=== PATIENT | female | born 1980 | race Caucasian/White ===

== ENCOUNTER 2017-06-11 05:55 | Emergency (ER) | payer OTHER ==
[~2017-06-11] VITALS: Ht 165.1 cm; Wt 63.0 kg
[~2017-06-11 05:55] MED LIST: CLIN150 PO; IBUP800T23 PO
[2017-06-11 05:58] VITALS: BP 175/107; PULSE 131; RESP 22; TEMP 98.6; O2SAT 100
[2017-06-11] MEDS ORDERED: SODIUM CHLOR 0.9% 1000 ML INJ 1,000 ML IV ONE (06:15)
[2017-06-11] MEDS ORDERED: SODIUM CHLORIDE 0.9% FLUSH 10 ML FLUSH IVF PRN (06:15)
--- NOTE | 2017-06-11 06:26 | PD ---
HPI Chief Complaint: Psychiatric Symptoms Time Seen by Provider: 06:08 Travel History International Travel<30 days: No Contact w/Intl Traveler<30days: No Traveled to known affect area: No History of Present Illness HPI The patient is a 37-year-old female who presents to the emergency department via private vehicle for anxiety. The patient states over the last 3 days she's had increasing anxiety, decreased ability to sleep, and a breakout of acne over the facial area. The patient states her symptoms started with a breaking out of acne on the facial area, she went to work, however, was embarrassed and asked to go home. The patient also states she's had decreasing ability to sleep over the last 3 days, is only averaging 2 hours of sleep per day and is having increasing tremors and anxiety. The patient denies any previous history of anxiety and has never been evaluated by a psychiatrist for anxiety. She denies any history of thyroid disorders, illicit drug use, excessive caffeine use, or previous pulmonary embolism/DVT. She denies any recent hospitalizations, surgeries, or travels. The patient's last menstrual cycle was 3-4 weeks ago, she denies . She denies taking any medications on a daily basis. Symptoms are moderate, there are no current alleviating or exacerbating factors. PFSH Past Medical History Medical History: Denies Significant Hx Depression: Yes Diminished Hearing: No Headaches: Yes Migraines: Yes Tetanus Vaccination: Unknown ?: Not Past Surgical History Surgical History: No Previous Surgery Social History Alcohol Use: Yes (WEEKLY) Tobacco Use: No Substance Use: No Allergies-Medications (Allergen,Severity, Reaction): Coded Allergies: penicillin G (Unverified Allergy, Severe, Rash, 06/11/17) Reported Meds & Prescriptions Reported Meds & Active Scripts Active Hydroxyzine HCl 25 Mg Tab 25 Mg PO Q6HR Review of Systems Except as stated in HPI: all other systems reviewed are Neg General / Constitutional: No: Fever HENT: No: Lightheadedness Cardiovascular: Positive: Chest Pain or Discomfort (occasional chest discomfort ) Respiratory: Positive: Shortness of Breath (occasional shortness of breath with her anxiety) Gastrointestinal: No: Nausea Musculoskeletal: No: Weakness Skin: Positive Other (increasing acne over the facial area) Neurologic: Positive: Other (tremulous over the last 3 days) Psychiatric: Positive: Anxiety Endocrine: No: Heat Intolerance, Cold Intolerance Physical Exam Narrative GENERAL: Awake, alert, slightly anxious and tremulous 37-year-old female. SKIN: Focused skin assessment warm/dry. Mild erythema noted over the nasal bridge bilaterally. HEAD: Atraumatic. Normocephalic. EYES: Pupils equal and round. No scleral icterus. No injection or drainage. ENT: No nasal bleeding or discharge. Dried and slightly chapped skin over the lips. NECK: Trachea midline. No JVD. CARDIOVASCULAR: Regular, tachycardic with a heart rate of 120. RESPIRATORY: No accessory muscle use. Clear to auscultation. Breath sounds equal bilaterally. GASTROINTESTINAL: Abdomen soft, non-tender, nondistended. No rebound tenderness. MUSCULOSKELETAL: No obvious deformities. No clubbing. No cyanosis. No edema. Slightly tremulous on the hands. NEUROLOGICAL: Awake and alert. No obvious cranial nerve deficits. Motor grossly within normal limits. Normal speech. Knee DTRs are 2+ and symmetric. PSYCHIATRIC: Slightly anxious, insight and judgment appear normal. Data Data Last Documented VS Vital Signs Date Time Temp Pulse Resp B/P (MAP) Pulse Ox O2 Delivery O2 Flow Rate FiO2 06/11/17 09:38 06/11/17 08:00 97 16 100 Room Air 06/11/17 05:58 98.6 Orders Orders Electrocardiogram (06/11/17 06:15) Ed Urine Pregnancytest Poc (06/11/17 06:15) Complete Blood Count With Diff (06/11/17 06:15) Comprehensive Metabolic Panel (06/11/17 06:15) Magnesium (Mg) (06/11/17 06:15) Ecg Monitoring (06/11/17 06:15) Iv Access Insert/Monitor (06/11/17 06:15) Oximetry (06/11/17 06:15) Sodium Chloride 0.9% Flush (Ns Flush) (06/11/17 06:15) Sodium Chlor 0.9% 1000 Ml Inj (Ns 1000 M (06/11/17 06:15) D-Dimer (06/11/17 06:15) Thyroid Stimulating Hormone (06/11/17 06:15) Free T3 (06/11/17 06:15) Free Thyroxine (T4) (06/11/17 06:15) Drug Screen, Random Urine (06/11/17 06:15) Lorazepam Inj (Ativan Inj) (06/11/17 06:30) Ct Pulmonary Angiogram (06/11/17 ) Iohexol 350 Inj (Omnipaque 350 Inj) (06/11/17 08:07) Labs Laboratory Tests Test 06/11/17 06:25 06/11/17 06:35 Urine Opiates Screen NEG Urine Barbiturates Screen NEG Urine Amphetamines Screen NEG Urine Benzodiazepines Screen NEG Urine Cocaine Screen NEG Urine Cannabinoids Screen POS White Blood Count 9.0 TH/MM3 Red Blood Count 4.69 MIL/MM3 Hemoglobin 15.0 GM/DL Hematocrit 43.8 % Mean Corpuscular Volume 93.4 FL Mean Corpuscular Hemoglobin 32.1 PG Mean Corpuscular Hemoglobin Concent 34.4 % Red Cell Distribution Width 12.6 % Platelet Count 235 TH/MM3 Mean Platelet Volume 7.8 FL Neutrophils (%) (Auto) 65.3 % Lymphocytes (%) (Auto) 22.5 % Monocytes (%) (Auto) 9.8 % Eosinophils (%) (Auto) 1.9 % Basophils (%) (Auto) 0.5 % Neutrophils # (Auto) 5.9 TH/MM3 Lymphocytes # (Auto) 2.0 TH/MM3 Monocytes # (Auto) 0.9 TH/MM3 Eosinophils # (Auto) 0.2 TH/MM3 Basophils # (Auto) 0.0 TH/MM3 CBC Comment DIFF FINAL Differential Comment D-Dimer Quantitative (PE/DVT) 0.52 MG/L FEU Blood Urea Nitrogen 8 MG/DL Creatinine 0.81 MG/DL Random Glucose 83 MG/DL Total Protein 8.6 GM/DL Albumin 3.9 GM/DL Calcium Level 9.0 MG/DL Magnesium Level 1.7 MG/DL Alkaline Phosphatase 73 U/L Aspartate Amino Transf (AST/SGOT) 86 U/L Alanine Aminotransferase (ALT/SGPT) 78 U/L Total Bilirubin 1.0 MG/DL Sodium Level 136 MEQ/L Potassium Level 3.4 MEQ/L Chloride Level 102 MEQ/L Carbon Dioxide Level 19.9 MEQ/L Anion Gap 14 MEQ/L Estimat Glomerular Filtration Rate 80 ML/MIN Free Thyroxine 1.09 NG/DL Free Triiodothyronine (T3) pg/dL 3.53 PG/ML Thyroid Stimulating Hormone 3rd Gen 2.090 uIU/ML MDM Medical Decision Making Medical Screen Exam Complete: Yes Emergency Medical Condition: Yes Medical Record Reviewed: Yes Interpretation(s) EKG reveals sinus tachycardia with a heart rate of 114. No ischemic changes noted. Differential Diagnosis Differential diagnosis includes thyroid storm, hyperthyroidism, pulmonary embolism, dehydration, electrolyte abnormality, anxiety, panic attack. Narrative Course IV was established, labs were drawn and sent, and the patient was placed on cardiac telemetry monitoring and continuous pulse oximetry monitoring. EKG was ordered and interpreted. The patient was administered 1 L of IV fluids and Ativan 1 mg intravenously. TSH, free T4, and free T3 were sent to lab. The patient was signed out to the oncoming physician at 7 AM with laboratory evaluation pending. Scripts Hydroxyzine HCl (Hydroxyzine HCl) 25 Mg Tab 25 MG PO Q6HR for Anxiety, #10 TAB 0 Refills Prov: Jyoti Pappsa MD 06/11/17 Condition: Stable Chavo Ngo MD Jun 11, 2017 06:26
[2017-06-11] MEDS ORDERED: LORazepam 2 MG/ML VIAL IV PUSH ONE (06:30)
[2017-06-11 06:34] VITALS: BP 161/101; O2SAT 100
[2017-06-11 06:58] LABS: AUTOMATED NEUTROPHIL # 5.9 TH/MM3 (1.8-7.7); BASOPHIL % 0.5 % (0.0-2.0); EOSINOPHIL # 0.2 TH/MM3 (0-0.4); EOSINOPHIL % 1.9 % (0.0-4.0); HEMATOCRIT 43.8 % (35.0-46.0); HEMO FLAGS DIFF FINAL; LYMPH % 22.5 % (9.0-44.0); MEAN CELL VOLUME 93.4 FL (80.0-100.0); MEAN CORPUSCULAR HEMOGLOBIN 32.1 PG (27.0-34.0); MEAN CORPUSCULAR HGB CONC 34.4 % (32.0-36.0); MONO % 9.8 % (0.0-8.0); NEUT % 65.3 % (16.0-70.0); PLATELET COUNT 235 TH/MM3 (150-450); RED BLOOD COUNT 4.69 MIL/MM3 (4.00-5.30); RED CELL DISTRIBUTION WIDTH 12.6 % (11.6-17.2)
[2017-06-11 07:14] LABS: ALT (GPT) 78 U/L (10-53); ANION GAP 14 MEQ/L (5-15); AST (GOT) 86 U/L (15-37); BICARBONATE 19.9 MEQ/L (21.0-32.0); BLOOD UREA NITROGEN 8 MG/DL (7-18); CHLORIDE 102 MEQ/L (98-107); GLOMERULAR FILTRATION RATE 80 ML/MIN (>89); MAGNESIUM 1.7 MG/DL (1.5-2.5); POTASSIUM 3.4 MEQ/L (3.5-5.1); SODIUM (NA) 136 MEQ/L (136-145)
[2017-06-11 07:23] LABS: ALKALINE PHOSPHATASE 73 U/L (45-117); FREE T3 3.53 PG/ML (2.18-3.98); FREE T4 1.09 NG/DL (0.76-1.46)
[2017-06-11 08:00] VITALS: BP 127/83; PULSE 97; RESP 16; O2SAT 100
[2017-06-11] MEDS ORDERED: IOHEXOL 350 MG/ML 10 ML VIAL (for RAD DIAG) IVCONTRAST ONE (08:07)
--- NOTE | 2017-06-11 09:06 | RADRPT ---
EXAM DATE/TIME: 06/11/2017 07:59 [facility] COMPARISON: No previous studies available for comparison. INDICATIONS : Chest discomfort and anxiety IV CONTRAST: 74 cc Omnipaque 350 (iohexol) IV RADIATION DOSE: 6.95 CTDIvol (mGy) MEDICAL HISTORY : None SURGICAL HISTORY : None. ENCOUNTER: Initial ACUITY: 1 day PAIN SCALE: 2/10 LOCATION: chest TECHNIQUE: Volumetric scanning of the chest was performed using a pulmonary embolism protocol MIP images were re constructed. Using automated exposure control and adjustment of the mA and/or kV according to patien t size, radiation dose was kept as low as reasonably achievable to obtain optimal diagnostic quality images. DICOM format image data is available electronically for review and comparison. Follow-up recommendations for detected pulmonary nodules are based at a minimum on nodule size and pa tient risk factors according to Fleischner Society Guidelines. FINDINGS: PULMONARY ARTERIES: No filling defects are seen in the pulmonary arteries through the segmental level. LUNGS: There is no consolidation or pneumothorax . No concerning pulmonary nodule is visualized. PLEURAE: There is no pleural thickening or pleural effusion. MEDIASTINUM: There is good visualization of the great vessels of the middle mediastinum. No evidence of mediastin al or hilar adenopathy/mass. MUSCULOSKELETAL: Within normal limits for patient age. MISCELLANEOUS: The visualized upper abdominal organs demonstrate no acute abnormality. CONCLUSION: Normal examination. Camilo Mcwilliams MD on June 11, 2017 at 9:03 Board Certified Radiologist. This report was verified electronically.
[2017-06-11] MEDS ORDERED: HYDR-3133 PO (09:17)
--- NOTE | 2017-06-11 09:17 | PD ---
Physical Exam Narrative General: No apparent distress, well appearing ENT: mmm Neck: trachea is midline Cardiovascular: Regular rate and rhythm Lungs: No increased respiratory effort noted Extremities: No edema Neuro: Awake, motor and sensation grossly intact, normal speech Data Data Last Documented VS Vital Signs Date Time Temp Pulse Resp B/P (MAP) Pulse Ox O2 Delivery O2 Flow Rate FiO2 06/11/17 08:00 97 16 127/83 (98) 100 Room Air 06/11/17 05:58 98.6 Orders Orders Electrocardiogram (06/11/17 06:15) Ed Urine Pregnancytest Poc (06/11/17 06:15) Complete Blood Count With Diff (06/11/17 06:15) Comprehensive Metabolic Panel (06/11/17 06:15) Magnesium (Mg) (06/11/17 06:15) Ecg Monitoring (06/11/17 06:15) Iv Access Insert/Monitor (06/11/17 06:15) Oximetry (06/11/17 06:15) Sodium Chloride 0.9% Flush (Ns Flush) (06/11/17 06:15) Sodium Chlor 0.9% 1000 Ml Inj (Ns 1000 M (06/11/17 06:15) D-Dimer (06/11/17 06:15) Thyroid Stimulating Hormone (06/11/17 06:15) Free T3 (06/11/17 06:15) Free Thyroxine (T4) (06/11/17 06:15) Drug Screen, Random Urine (06/11/17 06:15) Lorazepam Inj (Ativan Inj) (06/11/17 06:30) Ct Pulmonary Angiogram (06/11/17 ) Iohexol 350 Inj (Omnipaque 350 Inj) (06/11/17 08:07) Labs Laboratory Tests Test 06/11/17 06:25 06/11/17 06:35 Urine Opiates Screen NEG Urine Barbiturates Screen NEG Urine Amphetamines Screen NEG Urine Benzodiazepines Screen NEG Urine Cocaine Screen NEG Urine Cannabinoids Screen POS White Blood Count 9.0 TH/MM3 Red Blood Count 4.69 MIL/MM3 Hemoglobin 15.0 GM/DL Hematocrit 43.8 % Mean Corpuscular Volume 93.4 FL Mean Corpuscular Hemoglobin 32.1 PG Mean Corpuscular Hemoglobin Concent 34.4 % Red Cell Distribution Width 12.6 % Platelet Count 235 TH/MM3 Mean Platelet Volume 7.8 FL Neutrophils (%) (Auto) 65.3 % Lymphocytes (%) (Auto) 22.5 % Monocytes (%) (Auto) 9.8 % Eosinophils (%) (Auto) 1.9 % Basophils (%) (Auto) 0.5 % Neutrophils # (Auto) 5.9 TH/MM3 Lymphocytes # (Auto) 2.0 TH/MM3 Monocytes # (Auto) 0.9 TH/MM3 Eosinophils # (Auto) 0.2 TH/MM3 Basophils # (Auto) 0.0 TH/MM3 CBC Comment DIFF FINAL Differential Comment D-Dimer Quantitative (PE/DVT) 0.52 MG/L FEU Blood Urea Nitrogen 8 MG/DL Creatinine 0.81 MG/DL Random Glucose 83 MG/DL Total Protein 8.6 GM/DL Albumin 3.9 GM/DL Calcium Level 9.0 MG/DL Magnesium Level 1.7 MG/DL Alkaline Phosphatase 73 U/L Aspartate Amino Transf (AST/SGOT) 86 U/L Alanine Aminotransferase (ALT/SGPT) 78 U/L Total Bilirubin 1.0 MG/DL Sodium Level 136 MEQ/L Potassium Level 3.4 MEQ/L Chloride Level 102 MEQ/L Carbon Dioxide Level 19.9 MEQ/L Anion Gap 14 MEQ/L Estimat Glomerular Filtration Rate 80 ML/MIN Free Thyroxine 1.09 NG/DL Free Triiodothyronine (T3) pg/dL 3.53 PG/ML Thyroid Stimulating Hormone 3rd Gen 2.090 uIU/ML MDM Supervised Visit with VIN[facility]: No Interpretation(s) CBC & BMP Diagram 06/11/17 06:35 Total Protein 8.6 H, Albumin 3.9, Calcium Level 9.0, Magnesium Level 1.7, Alkaline Phosphatase 73, Aspartate Amino Transf (AST/SGOT) 86 H, Alanine Aminotransferase (ALT/SGPT) 78 H, Total Bilirubin 1.0 ct chest no pe Narrative Course Signed over to me to follow lab work and reevaluate. D-dimer was mildly elevated so proceed with CT chest which was negative. On discussion with patient she denies suicidal and homicidal ideation to me. Offered voluntary psychiatry screening but she declined and states she feels comfortable setting up outpatient follow-up for further testing. I will provide her with Vistaril to use the interim. Given return instructions and happy with plan, heart rate 104 while I was in room at or, bp improved after Ativan Diagnosis Primary Impression: Shortness of breath Patient Instructions: General Instructions Additional Instruction: Return as needed, set up primary care physician for close follow-up Med/Other Pt SpecificInfo: Prescription(s) given Scripts Hydroxyzine HCl (Hydroxyzine HCl) 25 Mg Tab 25 MG PO Q6HR for Anxiety, #10 TAB 0 Refills Prov: Jyoti Pappas MD 06/11/17 Disposition: 01 DISCHARGE HOME Condition: Stable Jyoti Pappas MD Jun 11, 2017 09:17
--- NOTE | 2017-06-11 19:34 | EKG ---
Date Performed: 06/11/2017 Time Performed: 06:18:23 PTAGE: 37 years EKG: SINUS TACHYCARDIA ABNORMAL RHYTHM ECG NO PREVIOUS TRACING DOCTOR: Yash Taylor Interpretating Date/Time 06/11/2017 19:32:35
== END 2017-06-11 09:44 | disposition home or self-care (01) ==
LOC: NEPE 05:55
DX: R06.02 Shortness of breath (principal); R07.89 Other chest pain; R00.0 Tachycardia, unspecified; F41.9 Anxiety disorder, unspecified; F32.9 Major depressive disorder, single episode, unspecified; Z79.899 Other long term (current) drug therapy
CPT/HCPCS: 71275; 80053; 80307; 83735; 84439; 84443; 84481; 84703; 85025; 85379; 93005; 96361; 96374; 99285; J2060; J7030; Q9967

== ENCOUNTER 2018-03-16 08:50 | Emergency (ER) | payer MEDICAID, OTHER ==
[~2018-03-16] VITALS: Ht 165.1 cm; Wt 60.0 kg
[~2018-03-16 08:50] MED LIST changes: -CLIN150 PO; +HYDR-3133 PO; -IBUP800T23 PO
[2018-03-16 08:55] VITALS: BP 163/93; PULSE 99; RESP 20; TEMP 97.6; O2SAT 99
[2018-03-16] MEDS ORDERED: SODIUM CHLOR 0.9% 1000 ML INJ 1,000 ML IV SCH (10:09)
[2018-03-16] MEDS ORDERED: SODIUM CHLORIDE 0.9% FLUSH 10 ML FLUSH IV FLUSH PRN (10:15)
[2018-03-16] MEDS ORDERED: PROCHLORPERAZINE INJ 10 MG/2 ML VIAL IV PUSH ONE (10:15)
[2018-03-16 10:22] VITALS: O2SAT 96
[2018-03-16 10:49] LABS: BASOPHIL % 0.2 % (0.0-2.0); EOSINOPHIL % 0.2 % (0.0-4.0); HEMATOCRIT 39.4 % (35.0-46.0); HEMOGLOBIN 13.7 GM/DL (11.6-15.3); LYMPH % 5.3 % (9.0-44.0); LYMPHOCYTE # 0.7 TH/MM3 (1.0-4.8); MEAN CELL VOLUME 94.3 FL (80.0-100.0); MEAN CORPUSCULAR HEMOGLOBIN 32.8 PG (27.0-34.0); MEAN CORPUSCULAR HGB CONC 34.8 % (32.0-36.0); MEAN PLATELET VOLUME 8.6 FL (7.0-11.0); MONO % 6.8 % (0.0-8.0); MONOCYTE # 0.9 TH/MM3 (0-0.9); NEUT % 87.5 % (16.0-70.0); PLATELET COUNT 244 TH/MM3 (150-450); RED BLOOD COUNT 4.17 MIL/MM3 (4.00-5.30); RED CELL DISTRIBUTION WIDTH 13.4 % (11.6-17.2); WHITE BLOOD COUNT 12.6 TH/MM3 (4.0-11.0)
[2018-03-16 11:08] LABS: ALBUMIN 3.8 GM/DL (3.4-5.0); ALT (GPT) 21 U/L (10-53); AST (GOT) 17 U/L (15-37); BICARBONATE 25.4 MEQ/L (21.0-32.0); BLOOD UREA NITROGEN 10 MG/DL (7-18); CALCIUM 8.9 MG/DL (8.5-10.1); CHLORIDE 102 MEQ/L (98-107); CREATININE 0.64 MG/DL (0.50-1.00); GLOMERULAR FILTRATION RATE 106 ML/MIN (>89); GLUCOSE,RANDOM 96 MG/DL (74-106); SODIUM (NA) 137 MEQ/L (136-145)
[2018-03-16 11:10] LABS: ALKALINE PHOSPHATASE 81 U/L (45-117); TOTAL BILIRUBIN ADULT 1.7 MG/DL (0.2-1.0); TOTAL PROTEIN 8.1 GM/DL (6.4-8.2)
[2018-03-16 11:32] LABS: BACTERIA, URINE MANY /hpf; BILIRUBIN, URINE NEG (NEG); BLOOD, URINE SMALL (NEG); GLUCOSE,URINE NEG (NEG); KETONE, URINE 80 mg/dL (NEG); MUCUS URINE MANY /lpf (OCC); NITRITE,URINE POS (NEG); PH, URINE 6.5 (5.0-8.5); SQUAMOUS EPITHELIAL CELL URINE 22 /hpf (0-5); URINE COLOR YELLOW (YELLW/STRAW); URINE LEUKOCYTE ESTERASE LARGE (NEG)
[2018-03-16] MEDS ORDERED: BACT800T5 PO (12:33)
--- NOTE | 2018-03-16 12:34 | PD ---
HPI Chief Complaint: GI Complaint Time Seen by Provider: 09:55 Travel History International Travel<30 days: No Contact w/Intl Traveler<30days: No Traveled to known affect area: No History of Present Illness HPI Patient is a 37-year-old female comes in complaining of nausea, vomiting, diarrhea. Also reports sore throat, cough and congestion. She says the sore throat cough and congestion started 2 days ago, she started with nausea and vomiting last night. She says she has not been able to keep anything down. She denies any abdominal pain. She says she tried taking Zofran at home, but she immediately vomited. She did not take her temperature at home. She has not taken anything for pain. Severity is mild to moderate. PFSH Past Medical History Depression: Yes Diminished Hearing: No Headaches: Yes Migraines: Yes ?: Unknown LMP: march 03, 2018 Past Surgical History Surgical History: No Previous Surgery Social History Alcohol Use: Yes (WEEKLY) Tobacco Use: No Substance Use: No Allergies-Medications (Allergen,Severity, Reaction): Coded Allergies: penicillin G (Unverified Allergy, Severe, Rash, 03/16/18) Reported Meds & Prescriptions Reported Meds & Active Scripts Active Bactrim DS (Sulfamethoxazole-Trimethoprim) 800-160 Mg Tab 1 Tab PO BID Review of Systems Except as stated in HPI: all other systems reviewed are Neg General / Constitutional: No: Fever, Chills HENT: Positive: Sore Throat, Congestion, No: Headaches, Lightheadedness Cardiovascular: No: Chest Pain or Discomfort Respiratory: Positive: Cough, No: Shortness of Breath Gastrointestinal: Positive: Nausea, Vomiting, Diarrhea Musculoskeletal: No: Myalgias, Limited ROM Skin: No Rash, No Change in Pigmentation Neurologic: No: Weakness, Dizziness Physical Exam Narrative GENERAL: Awake and alert, no acute distress. SKIN: Focused skin assessment warm/dry. No wounds or signs of infection. HEAD: Atraumatic. Normocephalic. EYES: Pupils equal and round. No scleral icterus. ENT: Mucous membranes pink and moist. NECK: Trachea midline. No JVD. CARDIOVASCULAR: Regular rate and rhythm. No murmur appreciated. RESPIRATORY: No accessory muscle use. Clear to auscultation. Breath sounds equal bilaterally. GASTROINTESTINAL: Abdomen soft, non-tender, nondistended. MUSCULOSKELETAL: No obvious deformities. No clubbing. No cyanosis. No edema. NEUROLOGICAL: Awake and alert. No obvious cranial nerve deficits. Motor grossly within normal limits. Normal speech. PSYCHIATRIC: Appropriate mood and affect; insight and judgment normal. Data Data Last Documented VS Vital Signs Date Time Temp Pulse Resp B/P (MAP) Pulse Ox O2 Delivery O2 Flow Rate FiO2 03/16/18 10:22 96 Room Air 03/16/18 08:55 97.6 99 20 163/93 (116) Orders Orders Complete Blood Count With Diff (03/16/18 10:09) Comprehensive Metabolic Panel (03/16/18 10:09) Urinalysis - C+S If Indicated (03/16/18 10:09) Iv Access Insert/Monitor (03/16/18 10:09) Ecg Monitoring (03/16/18 10:09) Oximetry (03/16/18 10:09) Sodium Chlor 0.9% 1000 Ml Inj (Ns 1000 M (03/16/18 10:09) Sodium Chloride 0.9% Flush (Ns Flush) (03/16/18 10:15) Ed Urine Pregnancytest Poc (03/16/18 10:09) Prochlorperazine Inj (Compazine Inj) (03/16/18 10:15) Urine Culture (03/16/18 11:10) Ed Discharge Order (03/16/18 12:34) Labs Laboratory Tests Test 03/16/18 10:25 03/16/18 11:10 White Blood Count 12.6 TH/MM3 Red Blood Count 4.17 MIL/MM3 Hemoglobin 13.7 GM/DL Hematocrit 39.4 % Mean Corpuscular Volume 94.3 FL Mean Corpuscular Hemoglobin 32.8 PG Mean Corpuscular Hemoglobin Concent 34.8 % Red Cell Distribution Width 13.4 % Platelet Count 244 TH/MM3 Mean Platelet Volume 8.6 FL Neutrophils (%) (Auto) 87.5 % Lymphocytes (%) (Auto) 5.3 % Monocytes (%) (Auto) 6.8 % Eosinophils (%) (Auto) 0.2 % Basophils (%) (Auto) 0.2 % Neutrophils # (Auto) 11.0 TH/MM3 Lymphocytes # (Auto) 0.7 TH/MM3 Monocytes # (Auto) 0.9 TH/MM3 Eosinophils # (Auto) 0.0 TH/MM3 Basophils # (Auto) 0.0 TH/MM3 CBC Comment DIFF FINAL Differential Comment Blood Urea Nitrogen 10 MG/DL Creatinine 0.64 MG/DL Random Glucose 96 MG/DL Total Protein 8.1 GM/DL Albumin 3.8 GM/DL Calcium Level 8.9 MG/DL Alkaline Phosphatase 81 U/L Aspartate Amino Transf (AST/SGOT) 17 U/L Alanine Aminotransferase (ALT/SGPT) 21 U/L Total Bilirubin 1.7 MG/DL Sodium Level 137 MEQ/L Potassium Level 3.7 MEQ/L Chloride Level 102 MEQ/L Carbon Dioxide Level 25.4 MEQ/L Anion Gap 10 MEQ/L Estimat Glomerular Filtration Rate 106 ML/MIN Urine Color YELLOW Urine Turbidity HAZY Urine pH 6.5 Urine Specific Lambert 1.028 Urine Protein 30 mg/dL Urine Glucose (UA) NEG mg/dL Urine Ketones 80 mg/dL Urine Occult Blood SMALL Urine Nitrite POS Urine Bilirubin NEG Urine Urobilinogen 4.0 MG/DL Urine Leukocyte Esterase LARGE Urine RBC 9 /hpf Urine WBC 68 /hpf Urine Squamous Epithelial Cells 22 /hpf Urine Bacteria MANY /hpf Urine Mucus MANY /lpf Microscopic Urinalysis Comment CULTURE INDICATED MDM Medical Decision Making Medical Screen Exam Complete: Yes Emergency Medical Condition: Yes Medical Record Reviewed: Yes Differential Diagnosis Viral illness versus gastroenteritis versus URI versus UTI Narrative Course Patient is a 37-year-old female comes in complaining of cough, congestion, nausea vomiting and diarrhea. Exam shows abdomen is soft nontender. Throat is without swollen tonsils or exudates. IV established, labs sent. Labs show no acute abnormalities. Urinalysis is positive for UTI. Patient given IV fluids, Compazine. Patient reports feeling better. She is able to drink water without vomiting. She will be discharged with Bactrim, extended course due to possible pyelonephritis. Advised follow-up with a primary care doctor. Advised return to the ED as needed for any worsening symptoms. Diagnosis Primary Impression: UTI (urinary tract infection) Qualified Codes: N30.00 - Acute cystitis without hematuria Additional Impression: Nausea and vomiting Qualified Codes: R11.2 - Nausea with vomiting, unspecified Patient Instructions: Acute Nausea and Vomiting (ED), General Instructions, Urinary Tract Infection in Women (ED) Additional Instructions: Take all of your antibiotics. Drink plenty of fluids. Eat a bland diet. Scripts Sulfamethoxazole-Trimethoprim (Bactrim DS) 800-160 Mg Tab 1 TAB PO BID for Infection, #20 TAB 0 Refills Prov: Shaunna Low MD 03/16/18 Disposition: 01 DISCHARGE HOME Condition: Stable Shaunna Low MD March 16, 2018 12:33
== END 2018-03-16 12:41 | disposition home or self-care (01) ==
LOC: NEPE 08:50
DX: N30.00 Acute cystitis without hematuria (principal); B96.20 Unspecified Escherichia coli [E. coli] as the cause of diseases classified elsewhere; R11.2 Nausea with vomiting, unspecified; F32.9 Major depressive disorder, single episode, unspecified
CPT/HCPCS: 80053; 81001; 84703; 85025; 87077; 87086; 87186; 96361; 96374; 99284; J0780; J7030